=== PATIENT | female | born 2000 | race Caucasian/White ===

== ENCOUNTER 2022-08-27 17:34 | Emergency (ER) | payer OTHER, SELFPAY ==
[2022-08-27 17:48] VITALS: BP 141/70; PULSE 95; RESP 14; TEMP 36.6; O2SAT 100
--- NOTE | 2022-08-27 18:16 | ED.EAR ---
HPI - Ear Problem General Chief complaint: Ear Stated complaint: Left Ear Pain Time Seen by Provider: 08/27/22 17:58 Source: patient Mode of arrival: ambulatory Limitations: no limitations History of Present Illness HPI Narrative: patient is a 21-year-old female that presents feeling like water stuck in her ear . patient states it is intermittent. states she tried to tilt her head to the side with no relief. also reports mild congestion. MD Complaint: ear pain Related Data Home Medications Medication Instructions Recorded Confirmed No Home Medications 08/27/22 08/27/22 Allergies Allergy/AdvReac Type Severity Reaction Status Date / Time No Known Allergies Allergy Unverified 08/27/22 18:19 Review of Systems Review of Systems: CONSTITUTIONAL: Denies malaise, chills, sweats, or fever.? EYES: Denies visual changes, redness, or discharge.? ENT: Reports congestion and left ear discomfort denies rhinorrhea, otalgia, sore throat.? CARDIOVASCULAR: Denies chest pain, palpitations, or edema.? RESPIRATORY: Denies dyspnea and cough? GASTROINTESTINAL: Denies abdominal pain, nausea, vomiting, diarrhea? SKIN: Denies rash or itching.? MUSCULOSKELETAL: Denies myalgia.? NEUROLOGIC: Denies headache All systems reviewed & are unremarkable except as noted in HPI and below PMFSH Comments At time of signature, agree with nursing past medical, surgical, social and family history. There is no relevant family history pertinent to the presenting complaint? Exam Narrative: GENERAL: Well-appearing, well-nourished, and in no acute distress.? HEAD: Normocephalic, atraumatic.? EYES: PERRLA, conjunctivae clear, and EOMI. No nystagmus.? ENT: Nares clear, turbinates pink, no rhinorrhea or epistaxis. Mucous membranes moist. TM pearly pate with sharp light reflex bilaterally, small black and insect noted on left ear TM; no tragal tenderness. Oropharynx without erythema or lesions. Tonsils not enlarged and without exudate.? NECK: Supple. No lymphadenopathy. No jugular venous distension, thyromegaly, or carotid bruits. Carotids were easily palpable bilaterally.?? CHEST: No respiratory distress. Clear to auscultation.? No bony deformities, no asymmetry. Speaks in full sentences.? HEART: Regular rate and rhythm. SKIN: Warm, dry, no rash.? NEURO: Alert and oriented x3. No focal deficits. PSYCH: Normal mood and affect? Course Course Emergency Course: Patient is aware of diagnosis, understands and agrees to treatment plan.? Anticipatory guidance given.? Patient agrees to follow-up as directed and is aware of reasons to seek care at the emergency department.? Portions of this record may have been created with voice recognition software? Level of Care: Express Care Visit Vital Signs Vital signs: Vital Signs Temperature 36.6 C 08/27/22 17:48 Pulse Rate 95 08/27/22 17:48 Respiratory Rate 14 08/27/22 17:48 Blood Pressure 141/70 H 08/27/22 17:48 Pulse Oximetry 100 08/27/22 17:48 Oxygen Delivery Room Air 08/27/22 17:48 Temperature 36.6 C 08/27/22 17:48 Pulse Rate 95 08/27/22 17:48 Respiratory Rate 14 08/27/22 17:48 Blood Pressure 141/70 H 08/27/22 17:48 Pulse Oximetry 100 08/27/22 17:48 Oxygen Delivery Room Air 08/27/22 17:48 Reviewed Procedures FB Removal Ear Foreign Body #1: Foreign Body Removal Date: 08/27/22 Foreign Body Removal Time: 18:20 Location: ear canal (L) Foreign Body Suspected: insect TM intact pre-procedure: yes If Insect Suspected: ear canal instilled with other ( hydrogen peroxide water) Foreign Body Removed: yes Foreign Body Removal Technique: irrigation Tympanic Membrane Intact Post Procedure: Yes Patient Tolerated Procedure: well Complications: none Medical Decision Making MDM Narrative Medical decision making narrative: Differential diagnosis considered: Zhao virus, strep pharyngitis, allergic rhinitis, upper re
--- NOTE | 2022-08-27 18:33 | PC.NURSE ---
at 1815 registry np successfully removed black colored small fb from left ear with use of elephant ear irrigation.
== END 2022-08-27 18:38 | disposition home or self-care (01) ==
PROVIDERS: Emergency Provider Nurse Practitioner Family; PCP Pediatrics
DX: T16.2XXA Foreign body in left ear, initial encounter (principal)
CPT/HCPCS: 69200; 99212; G0463

== ENCOUNTER 2022-10-02 12:29 | Emergency (ER) | payer OTHER, SELFPAY ==
--- NOTE | 2022-10-02 12:40 | ED.URI ---
HPI - URI/Sore Throat General Chief Complaint: Upper Respiratory Infection Stated Complaint: Sore Throat Source: patient and RN notes reviewed History of Present Illness HPI Narrative: 21-year-old female presents to Urgent Care complains of a sore throat that started yesterday. Patient states it could be her allergies because she has been taking her [id number] allergy medicine for quite some time. Patient denies any fevers, chills, ear pain, chest pain, shortness of breath, or vomiting. Patient states her mom was recently diagnosed with strep throat and she lives with her mom. Related Data Home Medications Medication Instructions Recorded Confirmed No Home Medications 08/27/22 10/02/22 Allergies Allergy/AdvReac Type Severity Reaction Status Date / Time No Known Allergies Allergy Verified 10/02/22 12:29 Review of Systems Review of Systems: Pertinent positives and pertinent negatives per HPI. PMFSH Comments At the time of my signature, I reviewed and agree with the nursing past medical, surgical, social, and family history. There is no relevant family history pertinent to the patient complaint. Exam Narrative: GENERAL: This is a well-nourished, well-developed patient, in no apparent distress. HEAD: normocephalic, atraumatic. EYES: PERRL. Sclera clear/white. Vision is grossly intact. EARS: External ears normal, auditory canals clear and without drainage, TMs normal without perforation. Hearing grossly intact. NOSE: External nose normal with no obvious nasal discharge, nares without redness, no rhinorrhea. THROAT: Mucous membranes moist, posterior pharynx clear. NECK: Neck supple, non-tender without lymphadenopathy, masses or thyromegaly. CARDIOVASCULAR: Regular rate and rhythm without murmurs, gallops, or rubs. RESPIRATORY: Clear to auscultation. Breath sounds equal bilaterally. No wheezes, rales, or rhonchi. GASTROINTESTINAL: Abdomen soft, non-tender, nondistended. Bowel sounds are active. No hepato-splenomegaly, or palpable masses. No guarding. SKIN: warm, intact with no suspicious lesions or rash, good texture and turgor. NEURO: awake, alert, and oriented to person, place and time. There were no obvious focal neurologic abnormalities. Course Course Level of Care: Express Care Visit Vital Signs Vital signs: Vital Signs Temperature 97.7 F 10/02/22 12:41 Pulse Rate 98 10/02/22 12:41 Respiratory Rate 20 10/02/22 12:41 Blood Pressure 129/77 10/02/22 12:41 Pulse Oximetry 100 10/02/22 12:41 Oxygen Delivery Room Air 10/02/22 12:41 Temperature 97.7 F 10/02/22 12:41 Pulse Rate 98 10/02/22 12:41 Respiratory Rate 20 10/02/22 12:41 Blood Pressure 129/77 10/02/22 12:41 Pulse Oximetry 100 10/02/22 12:41 Oxygen Delivery Room Air 10/02/22 12:41 Reviewed MDM - URI/Sore Throat MDM Narrative Medical decision making narrative: Rapid strep is negative in the office; however we will send to the lab for confirmation; there is a small percentage chance that it can come back positive; if it is, we will call you in 2-3days; and your prescription will be call in to your pharmacy. However, there is NO indication for antibiotic at this time. -Increase your fluids and Vitamin C. -Oral rinses such as: Salt water gargles and/or may use topical anesthetic (eg. Chloraseptic spray) or lozenges to relieve dryness or throat pain. -Take tylenol and ibuprofen as needed for pain and fever as directed. -Frequent hand washing or hand quantitative equity head is one of the best ways to prevent spread of infection. -Follow up with primary care provider in 2-3 days if condition is not improving or seek ER visit if your child starts breathing fast/has trouble breathing, is not drinking enough fluids, muffle voice, difficulty opening the mouth or will not wake up or will not interact with you. Differential Diagnosis Differential diagnosis: Likely upper respiratory infection, viral infection and pharyngitis [facility]
[2022-10-02 12:41] VITALS: BP 129/77; PULSE 98; RESP 20; TEMP 36.5; O2SAT 100
== END 2022-10-02 12:57 | disposition home or self-care (01) ==
PROVIDERS: Emergency Provider Nurse Practitioner Family; PCP Pediatrics
DX: J02.9 Acute pharyngitis, unspecified (principal)
CPT/HCPCS: 87081; 87880; 99213; G0463